=== PATIENT | male | born 1980 | race Caucasian/White ===

== ENCOUNTER → 2019-02-20 20:10 | Outpatient (CLI) | payer BC | END | disposition home or self-care (01) | LOC: D.LABREF 20:10 | PROVIDERS: ATTEND Urology | DX: R31.9 Hematuria, unspecified (principal) ==

== ENCOUNTER 2019-04-12 12:15 | Day surgery (SDC) | payer BC ==
[2019-04-12] MEDS ORDERED: METOPROLOL TART50 MG PO (13:03)
[2019-04-12 13:15] VITALS: BP 122/79; BMI 27.3
--- NOTE | 2019-04-12 14:21 | NUR ---
PATIENTS ARM ACROSS CHEST DURING PROCEDURE, CATALINA.
--- NOTE | 2019-04-14 11:31 | OP ---
PATIENT NAME: JOSE WILLINGHAM MEDICAL RECORD: [id number] :80 LOCATION:D[facility] ADMISSION DATE: SURGEON: LINNEA ALEX MD DATE OF OPERATION: 04/12/2019 SURGEON: Linnea Alex MD ANESTHESIA: TIVA by ISRAEL King CRNA DIAGNOSIS: Urge urinary incontinence, interstitial cystitis, possible bladder neck contracture. PROCEDURES: Cystoscopy, hydrodistention of the bladder, intravesical Botox injection 100 units, and intravesical Rimso instillation 50 mL. FINDINGS: No penile or urethral strictures. Tall bladder neck. Nonobstructive lateral lobes of the prostate. Heavily trabeculated bladder with no bladder tumors. Single ureteral orifices bilaterally. Diffuse bladder inflammation with glomerulations. BLOOD LOSS: None. 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 He has a longstanding history of urinary urgency with occasional urge incontinence and nocturia x4. This has been a problem since he was in high school. He saw urologist in [facility]. Oxybutynin was tried, but it did not help. He also had a lot of adverse side effects from the oxybutynin. Myrbetriq 50 mg did help. However, he finds this to be rather expensive. He has issues of suprapubic pain radiating to the peritoneum. These are suggestive of interstitial cystitis as well as urge urinary incontinence. He has no medication allergies. 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 We are going to perform cystoscopy. Bladder inflammation is found and hydrodistention and intravesical Rimso will be instilled. For the urge incontinence, he will be getting intravesical Botox injection. DESCRIPTION OF PROCEDURE: The patient was given IV sedation. He was then placed into the lithotomy position. He was then prepped and draped. Lidocaine jelly was inserted into the urethra. A 21-Greek cystoscope with 30-degree lens was used for visualization. Findings as outlined above. There was inflammation of the bladder, but also very heavily trabeculated bladder suggestive of a bladder neck obstruction. The bladder was filled to over 600 mL and the pressure was maintained for about 2 minutes. The bladder became quite angry and red from the hydrodistention. Glomerulations were seen. The bladder volume was then decreased by opening up the stopcock on the cystoscope. We then injected 100 units of intravesical Botox. This was done with 10 units injected at 10 different locations, excluding the ureteral orifices on the trigone of the bladder. Once the Botox had been injected, then, the bladder was emptied through the cystoscope sheath and the scope was removed entirely. A red rubber catheter was then inserted. Through the lumen of the red rubber catheter, we instilled 50 mL of Rimso solution. Once the solution was in the bladder, the catheter was removed, leaving the solution in the bladder. He will hold it in for about 15 minutes and then void it out. I will see him in followup in 2 weeks' time. If he is still symptomatic in terms of the bladder pain, then he may require another treatment of Rimso at that time. OPERATIVE REPORT [id number] JOSE WILLINGHAM TRANSNELA:[id number] Voice Confirmation ID: [id number] DOCUMENT ID: [id number] LINNEA ALEX MD at 1131 CC: [id number] DICTATION DATE: 04/12/19 1419 GENERAL MAINTENANCE ENGINEER: 04/12/192102 [facility] 04/12/19 [facility] [address] [place] [address]
== END 2019-04-12 15:25 | disposition home or self-care (01) ==
LOC: D.OPS 12:15 → D.PAN 15:00 → D.OPS 15:00
PROVIDERS: ATTEND Urology
DX: N39.41 Urge incontinence (principal); N30.10 Interstitial cystitis (chronic) without hematuria; N32.89 Other specified disorders of bladder; Z01.812 Encounter for preprocedural laboratory examination

== ENCOUNTER → 2021-02-15 18:47 | Outpatient (CLI) | payer BC ==
[~2021-02-15 18:47] MED LIST: METOPROLOL TART50 MG PO
== END | disposition home or self-care (01) ==
LOC: D.LABREF 18:47
PROVIDERS: ATTEND Surgery
DX: L02.212 Cutaneous abscess of back [any part, except buttock and flank] (principal)